=== PATIENT | male | born 1995 | race Two or more races ===

== ENCOUNTER 2019-08-02 02:10 | Emergency (ER) | payer OTHER ==
[~2019-08-02] VITALS: Ht 182.9 cm; Wt 93.0 kg
--- NOTE | 2019-08-02 02:50 | NUR ---
Dr. Rodriguez at bedside for MSE
[2019-08-02] MEDS ORDERED: MAG HYDROX/AL HYDROX/SIMETH 30 ML LIQUID UDC PO ONE (03:00)
[2019-08-02] MEDS ORDERED: PANTOPRAZOLE SODIUM 40 MG TABLET.DR PO ONE ×2 (03:00→03:01)
[2019-08-02] MEDS ORDERED: MAG HYDROX/AL HYDROX/SIMETH 30 ML LIQUID UDC ONE (03:01)
--- NOTE | 2019-08-02 03:16 | NUR ---
Patient discharged to home in stable condition. Written and verbal after care instructions given. Patient verbalizes understanding of instructions. Stressed follow up or return to ER for worsening s/s. Pt ambulated out of ER in steady gait.
[2019-08-02 03:17] VITALS: BP 140/90
== END 2019-08-02 03:18 | disposition home or self-care (01) ==
LOC: ER 02:22
DX: F41.9 Anxiety disorder, unspecified (principal); Z76.0 Encounter for issue of repeat prescription; Z59.0 Homelessness; R03.0 Elevated blood-pressure reading, without diagnosis of hypertension; Z87.891 Personal history of nicotine dependence; R20.0 Anesthesia of skin; R00.0 Tachycardia, unspecified
CPT/HCPCS: 93005; A4663